=== PATIENT | female | born 1955 | race Caucasian/White ===

== ENCOUNTER 2017-03-11 19:23 | Emergency (ER) | payer OTHER ==
--- NOTE | 2017-03-11 19:49 | EDPHY ---
H & P Time Seen by Provider: 03/11/17 19:34 HPI/ROS: 61-year-old female presents complaining of cough, fevers, body aches that originally started with just cold symptoms approximately 4 days ago. She states the cough alone would not have prompted her to come to the emergency department however the high fever was very concerning to her. She has a past medical history significant for C diff in early 2015 that required multiple antibiotic regimens. Prior to her difficulty with C diff she had a cholecystectomy complicated by sepsis. She denies nausea vomiting diarrhea she denies shortness of breath chest pain or abdominal pain. Review of systems As per HPI General positive fever no chills no weakness HEENT no eye pain no eye discharge. No eye redness, no sore throat Respiratory positive cough, no shortness of breath Cardiac no chest pain, no peripheral edema GI no abdominal pain, no diarrhea, no constipation, no nausea, no vomiting no flank pain, no hematuria, no dysuria Musculoskeletal positive myalgias, no joint pain Heme no easy bruising, no easy bleeding Endo no polyuria, no polydipsia Skin no rashes, no pruritus Neuro no syncope, no dizziness, no headaches Psych is no suicidal ideation, no homicidal ideation Source: Patient Exam Limitations: No limitations - Personal History Current Tetanus/Diphtheria Vaccine: Yes Tetanus Vaccine Date: 2009 - Medical/Surgical History Hx Asthma: No Hx Chronic Respiratory Disease: No Hx Diabetes: No Hx Cardiac Disease: No Hx Renal Disease: No Hx Cirrhosis: No Hx Alcoholism: No Hx HIV/AIDS: No Hx Splenectomy or Spleen Trauma: No Other PMH: Depression. fibroid tumor. cholecystectomy complicated by sepsis, late 2014. Clostridia difficile, early 2015 - Family History Significant Family History: No pertinent family hx - Social History Smoking Status: Former smoker Alcohol Use: Rarely Drug Use: None - Physical Exam Exam: 61-year-old female Alert and oriented nontoxic appearance, no acute distress, febrile to 38.7 Atraumatic normocephalic Extraocular muscles intact, anicteric Nares mild yellowish discharge Oropharynx mild erythema no tonsillar swelling no exudate no uvular deviation, tolerating own secretions Neck supple no lymphadenopathy Lungs clear to auscultation bilaterally Heart regular rate and rhythm Abdomen normoactive bowel sounds soft nontender Extremities no cyanosis clubbing or edema Skin no rash Constitutional: Initial Vital Signs Temperature (C) 38.7 C H 03/11/17 19:34 Heart Rate 88 03/11/17 19:34 Respiratory Rate 16 03/11/17 19:34 Blood Pressure 109/85 H 03/11/17 19:34 O2 Sat (%) 92 03/11/17 19:34 O2 Delivery Mode Room Air Allergies/Adverse Reactions: No Known Allergies Allergy (Verified 03/11/17 19:50) Home Medications: Medication Instructions Recorded NK [No Known Home Meds] 08/28/16 Medical Decision Making - Diagnostics Imaging Results: Imaging Impressions Chest X-Ray 03/11/17 20:03 Impression: Normal chest. ED Course/Re-evaluation: Patient seen and evaluated for cough fever, body aches of 4-5 days duration, however worse today. Chest x-ray negative Rapid influenza negative Differential diagnosis considered Bronchitis, pneumonia, viral syndrome, flu-like illness, influenza Impression Viral syndrome Plan Discharge Follow-up primary care physician Acetaminophen q.4 hours p.r.n. fever Ibuprofen q.6 hours p.r.n. fever Return as needed Also advised to rest drink plenty of fluids - Data Points Laboratory Results: 03/11/17 20:10 Influenza A,B Rapid NEGATIVE FOR FLU (NEGATIVE) Medications Given: Discontinued Medications Ibuprofen (Motrin) 600 mg PO EDNOW ONE Stop: 03/11/17 20:03 Last Admin: 03/11/17 20:10 Dose: 600 mg Departure - Departure Disposition: Home, Routine, Self-Care Clinical Impression: Viral syndrome Condition: Good Instructions: Viral Syndrome (ED) Referrals: NONE *PRIMARY CARE P,. [Primary Care Provider] - As per Instructions
[2017-03-11] MEDS ORDERED: IBUPROFEN 200 MG TAB PO ONE (20:02)
[2017-03-11 21:33] VITALS: BP 125/76; PULSE 78; RESP 20; TEMP 100.4; O2SAT 96
== END 2017-03-11 21:31 | disposition home or self-care (01) ==
LOC: CED 19:23
DX: B34.9 Viral infection, unspecified (principal); Z87.891 Personal history of nicotine dependence
CPT/HCPCS: 71020-PO; 87400-PO

== ENCOUNTER 2018-10-06 11:06 | Emergency (ER) | payer BC, OTHER ==
--- NOTE | 2018-10-06 12:03 | EDPHY ---
H & P Time Seen by Provider: 10/06/18 11:42 HPI/ROS: This patient presents with right eye flashes and floaters. She describes the flashes as semi lunar shaped intermittent. She 1st noticed this while descending in a plane flight yesterday with persistent symptoms since. She notes no exacerbating factors. She reports a feeling of slight blurred vision in the right eye lateral visual field. She notes no other associated vision changes. She came in by private vehicle ROS: Constitutional: No fevers HEENT: No trauma. No left eye symptoms. Neuro: No head injury recently. No headache. No focal numbness tingling weakness. 5 point review of symptoms is performed and otherwise negative with exception of pertinent positives and negatives listed in HPI and ROS Smoking Status: Former smoker Physical Exam: Physical Exam Vital signs are normal. General: No acute distress HEENT: Nose: Clear bilaterally. No sinus tenderness to percussion. Ears: External canals and tympanic membranes are clear with no erythema or abnormal findings bilaterally. Oropharynx: No erythema or exudates. No dysphonia. No drooling or stridor. Eyes: Pupils equal and react to light. Extraocular motions are intact. Visual acuity is reviewed and noted as per nurse's documentation. Optic fundi: Appreciate no evidence of retinal detachment or other significant abnormalities on a nondilated exam with direct ophthalmoscopy. Visual field confrontational testing. No significant deficits that the patient does feel slightly blurred vision to the right lateral visual field the right eye. Neck: Supple with no meningismus. No lymphadenopathy Lungs: Clear to auscultation bilaterally with no rales, rhonchi or wheeze. No respiratory distress. Cardiac: Regular rate and rhythm with no murmur gallop or rub Skin: No rash or pallor. Neuro: Alert with no focal deficits noted. Initial differential diagnosis: Vitreous detachment: Early retinal detachment , atypical migraine Constitutional: Initial Vital Signs Temperature (C) 37.1 C 10/06/18 11:26 Heart Rate 63 10/06/18 11:26 Respiratory Rate 16 10/06/18 11:26 Blood Pressure 146/98 H 10/06/18 11:26 O2 Sat (%) 95 10/06/18 11:26 O2 Delivery Mode Room Air Allergies/Adverse Reactions: morphine Allergy (Verified 10/06/18 11:22) Home Medications: Medication Instructions Recorded NK [No Known Home Meds] 08/28/16 MDM/Departure - MDM ED Course/Re-evaluation: I spoke with our mixing and dispensing supervisor on-call who would like to see the patient promptly in his office-[address] in [facility]. The patient appreciates this will proceed to the ophthalmology clinic for further evaluation by Dr. Haines. - Depart Disposition: Home, Routine, Self-Care Clinical Impression: Visual changes Condition: Good Instructions: Visual Floaters (ED) Additional Instructions: Diagnosis: Flashers and floaters Plan: Proceed directly to [facility]-[address] Haines-ophthalmology specialist Referrals: ZANDER MALCOLM MD [Other] - As per Instructions Harrison Haines MD [Medical Doctor] - As per Instructions
[2018-10-06 12:41] VITALS: BP 145/82
== END 2018-10-06 12:38 | disposition home or self-care (01) ==
LOC: CED 11:06
DX: H53.8 Other visual disturbances (principal); Z87.891 Personal history of nicotine dependence